=== PATIENT | male | born 1960 | race Native Hawaiian/Other Pacific Islander ===

== ENCOUNTER 2023-04-02 14:56 | Emergency (ER) | payer MEDICARE ==
[~2023-04-02] VITALS: Ht 180.3 cm; Wt 88.9 kg
[2023-04-02] MEDS ORDERED: ACETAMINOPHEN 325 MG TABLET PO ONE (19:30)
[2023-04-02 19:47] LABS: APPEARANCE,URINE CLEAR (CLEAR); BILIRUBIN,URINE NEGATIVE (NEGATIVE); BLOOD, URINE TRACE-INTA Ery/uL (NEGATIVE); COLOR,URINE YELLOW (YELLOW); KETONES,URINE NEGATIVE (NEGATIVE); LEUKOCYTE ESTERASE ,URINE NEGATIVE (NEGATIVE); NITRITE, URINE NEGATIVE (NEGATIVE); PROTEIN,URINE 3+ mg/dl (NEGATIVE); UGLUCOSE TRACE mg/dL (NEGATIVE); UROBILINOGEN,URINE 0.2 EU/dL (0.2)
[2023-04-02 19:51] LABS: BASOPHILS # (AUTO) 0.1 K/uL (0.0-0.2); BASOPHILS % (AUTO) 1.2 % (0.0-2.0); EOSINOPHILS # (AUTO) 0.4 K/uL (0.0-0.7); EOSINOPHILS % (AUTO) 5.8 % (0.0-6.0); HEMATOCRIT 36 % (39-51); HEMOGLOBIN 11.8 g/dL (13.5-17.5); LYMPHOCYTES # (AUTO) 1.4 K/uL (0.8-4.8); LYMPHOCYTES % (AUTO) 20.4 % (20.0-44.0); MEAN CORPUSCULAR HEMOGLOBIN 27 PG (26.0-33.0); MEAN CORPUSCULAR HGB CONC 32 g/dl (31.0-36.0); MEAN CORPUSCULAR VOLUME 85 fL (80-96); MONOCYTES # (AUTO) 0.7 K/uL (0.1-1.30); MONOCYTES % (AUTO) 10.4 % (2.0-12.0); NEUTROPHILS # (AUTO) 4.4 K/uL (1.8-8.9); NEUTROPHILS % (AUTO) 62.2 % (43.0-81.0); PLATELET COUNT (AUTO) 348 K/uL (150-450); RED BLOOD CELL COUNT(AUTO) 4.31 MIL/uL (4.5-6.0); RED CELL DISTRIBUTION WIDTH 16.5 % (11.5-15.0)
[2023-04-02 19:56] LABS: AMPHETAMINE, URINE NEGATIVE (NEGATIVE); BARBITURATE, URINE NEGATIVE (NEGATIVE); BENZODIAZEPINE, URINE NEGATIVE (NEGATIVE); CANNABINOID, URINE NEGATIVE (NEGATIVE); COCCAINE, URINE NEGATIVE (NEGATIVE); OPIATE, URINE NEGATIVE (NEGATIVE); PHENCYCLIDINE SCREEN,URINE NEGATIVE (NEGATIVE)
[2023-04-02] MEDS ORDERED: LORAZEPAM 1 MG TABLET ONE (20:00)
[2023-04-02] MEDS ORDERED: LORAZEPAM 1 MG TABLET PO ONE (20:00)
[2023-04-02 20:01] LABS: ADD URINE CULTURE NO; BACTERIA,URINE Few /HPF (None Seen); SQUAMOUS EPITHELIAL CELL,UR Few /HPF (None Seen); WBC,URINE 0-2 /HPF (0-3)
[2023-04-02] MEDS ORDERED: ACETAMINOPHEN ES 500 MG TABLET ONE (20:02)
[2023-04-02 20:05] LABS: CARBON DIOXIDE 22 mmol/L (21-32); CHLORIDE 106 mmol/L (98-107); CREATININE 2.2 mg/dL (0.6-1.3); GLUCOSE 301 mg/dL (74-106); POTASSIUM 4.1 mmol/L (3.5-5.1); SODIUM SERUM 138 mmol/L (136-145); UREA NITROGEN, BLOOD 38 mg/dL (7-18)
[2023-04-02 20:10] LABS: ALANINE AMINOTRANSFERASE 28 U/L (12-78); ALBUMIN 3.4 g/dL (3.4-5.0); ALCOHOL, BLOOD < 3 mg/dL (0-10); ALKALINE PHOSPHATASE 99 U/L (46-116); ASPARTATE AMINOTRANSFERASE 11 U/L (15-37); BILIRUBIN,DIRECT 0.1 mg/dL (0.0-0.2); BILIRUBIN,TOTAL 0.3 mg/dL (0.2-1.0); TOTAL PROTEIN, SERUM 7.6 g/dL (6.4-8.2)
[2023-04-02 20:17] LABS: SALICYLATE 0.9 mg/dL (2.8-20.0)
[2023-04-02 20:18] LABS: ACETAMINOPHEN <10 ug/ml (10-30)
[2023-04-03] MEDS ORDERED: OLANZAPINE 5 MG TABLET PO ONE (01:00)
[2023-04-03] MEDS ORDERED: OLANZAPINE 5 MG TABLET ONE (01:01)
[2023-04-03] MEDS ORDERED: LORAZEPAM 1 MG TABLET PO ONE (01:30)
[2023-04-03] MEDS ORDERED: diphenhydrAMINE HCL 25 MG CAPSULE PO ONE (01:30)
[2023-04-03] MEDS ORDERED: LORAZEPAM 1 MG TABLET ONE (01:33)
[2023-04-03] MEDS ORDERED: diphenhydrAMINE HCL 50 MG CAPSULE ONE (01:34)
[2023-04-03 02:23] VITALS: BP 155/90; TEMP 98; O2SAT 98
== END 2023-04-03 02:40 ==
LOC: ER 15:04
DX: R46.1 Bizarre personal appearance (principal); R45.83 Excessive crying of child, adolescent or adult; I11.0 Hypertensive heart disease with heart failure; I50.9 Heart failure, unspecified
CPT/HCPCS: 99285; 85025; 80048; 80076; 81001; 36415; 80143; 80320; 80307; Q0163; G0480